=== PATIENT | male | born 1945 | race Caucasian/White ===

== ENCOUNTER 2018-01-02 08:56 | Emergency (ER) | payer MEDICARE ==
[~2018-01-02 08:56] MED LIST: BISM262T15 PO; CLON-527 PO; EFF25T PO; LEVO112T61 PO; LEVO25TA50 PO; LISI-600 PO; LOP25T PO; NORCO10T PO
[2018-01-02] MEDS ORDERED: clonazePAM 1mg tablet PO ONE (09:10)
[2018-01-02 09:31] VITALS: BP 145/79
== END 2018-01-02 09:42 | disposition home or self-care (01) ==
LOC: ER 08:57
DX: F11.23 Opioid dependence with withdrawal (principal); J44.9 Chronic obstructive pulmonary disease, unspecified; G89.29 Other chronic pain; Z88.2 Allergy status to sulfonamides; Z88.0 Allergy status to penicillin
CPT/HCPCS: 99283

== ENCOUNTER 2019-08-26 01:44 | Emergency (ER) | payer MEDICARE ==
[~2019-08-26] VITALS: Ht 170.2 cm; Wt 97.0 kg
[2019-08-26] MEDS ORDERED: epiNEPHrine 1 mg/ml inj SQ ONE (01:55)
[2019-08-26] MEDS ORDERED: methylPREDNISolone sod succ 125mg/2ml vial IV ONE (01:55)
[2019-08-26] MEDS ORDERED: famotidine/PF 10 mg/ml inj IV ONE (01:55)
--- NOTE | 2019-08-26 02:02 | NUR ---
I HAD TO OVERRIDE EPINEPHRINE, UNABLE TO PULL OUT OF OMNICELL.
[2019-08-26] MEDS ORDERED: METO-467 PO ×2 (05:39→05:40)
[2019-08-26] MEDS ORDERED: THYROID PO (05:43)
[2019-08-26] MEDS ORDERED: EPIN0.3P3 IM (06:04)
[2019-08-26] MEDS ORDERED: PRED20TA PO (06:04)
[2019-08-26 07:01] VITALS: BP 133/72
== END 2019-08-26 07:03 | disposition home or self-care (01) ==
LOC: ER 01:45
DX: T78.09XA Anaphylactic reaction due to other food products, initial encounter (principal); J44.9 Chronic obstructive pulmonary disease, unspecified; F41.9 Anxiety disorder, unspecified; F32.9 Major depressive disorder, single episode, unspecified; Z91.013 Allergy to seafood; Z88.0 Allergy status to penicillin; Z88.2 Allergy status to sulfonamides; Z79.899 Other long term (current) drug therapy; Z98.890 Other specified postprocedural states; Y92.89 Other specified places as the place of occurrence of the external cause
CPT/HCPCS: 96372; 96374; 96375; 99291; J2930; J3490

== ENCOUNTER 2022-03-14 08:19 | Emergency (ER) | payer MEDICARE ==
[~2022-03-14] VITALS: Ht 170.2 cm; Wt 72.7 kg
[~2022-03-14 08:19] MED LIST changes: -EFF25T PO; +EPIN0.3P3 IM; -LEVO112T61 PO; -LEVO25TA50 PO; -LISI-600 PO; -LOP25T PO; +METO-467 PO; -NORCO10T PO; +THYROID PO
--- NOTE | 2022-03-14 08:36 | NUR ---
SPOKE WITH DR AGUAYO REGARDING PATIENT'S STATUS, ORDERS RECEIVED.
[2022-03-14 09:13] LABS: EOSINOPHILS % (AUTO) 0.2 % (0-6); LYMPHOCYTES % (AUTO) 26.6 % (21-51); MEAN CORPUSCULAR HEMOGLOBIN 29.3 PG (27.0-31.0); MONOCYTES # (AUTO) 0.5 X10'3 (0-0.9); PLATELET COUNT 246 X10'3 (140-440)
[2022-03-14 09:15] LABS: RED BLOOD COUNT 5.19 X10'6 (4.70-6.10); WHITE BLOOD COUNT 8.1 X10'3 (4.5-11.0)
[2022-03-14 09:16] LABS: BASOPHILS # (AUTO) 0.2 X10'3 (0-0.2); BASOPHILS % (AUTO) 2 % (0-1); HEMOGLOBIN 15.2 g/dl (14.0-17.9); LYMPHOCYTES # (AUTO) 2.1 X10'3 (1.1-4.8); MEAN CORPUSCULAR HGB CONC 35.4 g/dL (33.0-36.5); MEAN CORPUSCULAR VOLUME 82.9 FL (78-98); MEAN PLATELET VOLUME 8.4 FL (7.4-10.4); MONOCYTES % (AUTO) 6 % (2-12); NEUTROPHILS # (AUTO) 5.3 X10'3 (1.8-7.7); NEUTROPHILS % (AUTO) 65.2 % (42-75); RED CELL DISTRIBUTION WIDTH 15.4 % (11.5-14.5)
[2022-03-14 09:41] LABS: ALANINE AMINOTRANSFERASE 25 U/L (12-78); ALBUMIN 4.5 G/DL (3.4-5.0); ALBUMIN/GLOBULIN RATIO 1.2 (1.1-1.5); ALKALINE PHOSPHATASE 124 IU/L (46-116); ANION GAP 11 (8-16); ASPARTATE AMINO TRANSFERASE 24 U/L (10-37); BILIRUBIN,TOTAL 1.3 MG/DL (0.1-1.0); BLOOD UREA NITROGEN 15 MG/DL (7-18); BUN/CREATININE RATIO 11.5 (5.4-32.0); CALCIUM 9.5 MG/DL (8.5-10.1); CHLORIDE 97 MMOL/L (99-107); CREATININE 1.31 MG/DL (0.60-1.10); GLUCOSE 171 MG/DL (70-104); SODIUM 131 MMOL/L (135-145); TOTAL CARBON DIOXIDE 22.6 MMOL/L (24-32); TOTAL PROTEIN 8.2 G/DL (6.4-8.2); eGFR 53 ML/MIN
[2022-03-14 09:44] LABS: POTASSIUM 2.8 MMOL/L (3.5-5.1)
[2022-03-14] MEDS ORDERED: normal saline 1000ML IV soln IV ONE (09:50)
[2022-03-14] MEDS ORDERED: potassium Cl 10 mEq/100mL bag IV ONE ×2 (09:50→11:55)
[2022-03-14 10:46] LABS: MAGNESIUM 1.8 MG/DL (1.5-2.4)
[2022-03-14] MEDS ORDERED: ondansetron/PF 4mg/2ml inj IV ONE (10:50)
--- NOTE | 2022-03-14 14:10 | NUR ---
LAB AT BEDSIDE.
[2022-03-14] MEDS ORDERED: ONDA4TAB12 PO (14:44)
[2022-03-14] MEDS ORDERED: POTA-82 PO (14:44)
[2022-03-14 15:00] VITALS: BP 119/64
--- NOTE | 2022-03-14 15:15 | NUR ---
PROVIDER AT BEDSIDE FOR DC. PT ATTEMPTED TO CALL NEIGHBOR, BUT UNABLE TO GET AHOLD OF. WILL CALL [facility] FOR PT.
== END 2022-03-14 15:20 | disposition home or self-care (01) ==
LOC: ER 08:19
DX: E87.6 Hypokalemia (principal); Z20.822 Contact with and (suspected) exposure to COVID-19; R53.1 Weakness; R42 Dizziness and giddiness; K59.00 Constipation, unspecified; J44.9 Chronic obstructive pulmonary disease, unspecified; G89.29 Other chronic pain; Z87.01 Personal history of pneumonia (recurrent); Z87.891 Personal history of nicotine dependence; Z98.890 Other specified postprocedural states; Z91.013 Allergy to seafood; Z88.0 Allergy status to penicillin; Z88.2 Allergy status to sulfonamides; Z79.899 Other long term (current) drug therapy
CPT/HCPCS: 36415; 71045; 80053; 83605; 83735; 83880; 84132; 84145; 84484; 85025; 87040; 87186; 87502; 87503; 87635; 93005; 96365; 96375; 99285; C9803; J2405; J3480; J7030